=== PATIENT | female | born 2000 | race Caucasian/White ===

== ENCOUNTER 2024-08-18 10:27 | Day surgery (SDC) | payer BC, SELFPAY ==
[2024-08-15 12:25] VITALS: BMI 21.1
[2024-08-18 11:08] VITALS: BP 107/63; PULSE 73; RESP 16; TEMP 36.8; O2SAT 99
[2024-08-18] MEDS: LACTATED RINGERS 1000ML 1,000 ML 50 ML IV (11:17)
--- NOTE | 2024-08-18 11:22 | P.PNANES_ITS ---
[facility] Disclaimer: The information contained in this section may have been updated after the patient was seen, as this information can be updated by other users. Medical History OCD (obsessive compulsive disorder) Anxiety Surgical History History of appendectomy Family History Other Family history non-contributory Social History Smoking Status: Never smoker alcohol intake: never substance use type: marijuana current occupational status: employed Travel in the last 8 weeks: Inside the [place] caffeine: Yes Have you lived/traveled outside [place] in past 30 days?: No Contact w/someone who lives/traveled outside [place] past 30 days?: No Exposure to someone with infectious disease in past 14 days?: No Do you have a fever (greater than 100.4 F or 38 C)?: No Have you tested positive for COVID-19: No Exposed to someone with COVID-19 in past 14 days?: No Do you have a sore throat?: No Do you have a cough?: No Do you have any weakness?: No Are you experiencing any nausea/vomitting?: No Do you have any diarrhea?: No Are you experiencing any unusual bleeding?: No Do you have any muscle aches/pain?: No Do you have any abdominal pain?: No Are you experiencing loss of taste or smell?: No [facility] Anesthesia Checklist Patient Identification Patient Identification: Arm Band and Verbal (Name & ) Structural Data Admitted From: Home Planned Operative Procedure/s: colonoscopy Verified Documents: Surgical Consent NPO Status Verified Time NPO: 00:00 Chart Verification Results Verified: HCG Additional verifications Anesthesia Reactions: No Hx Blood Transfusions: No Blood Transfusion Reaction: No Airway Assessment Mallampati Score:: Class I C-Spine Mobility Assessed: Yes Dentition: Good Dentition Neurological Assessment Level of Consciousness: Awake, Alert and Appropriate Hx Seizures: No Numbness or tingling in extremities: No Anesthesia Plan Anesthesia Plan: Verified ASA Class: I Anesthesia Type: MAC
[2024-08-18 11:33] LABS: Urine Pregnancy, HCG Qual. Negative (Negative)
--- NOTE | 2024-08-18 12:40 | EXP.HP ---
History of Present Illness *Admission Date: 08/18/24 *Reason for visit:: Lower abdominal pain/diarrhea *History of present illness: Ms. Maloney is a 23-year-old female who is here for diagnostic colonoscopy secondary to lower abdominal pain and especially right lower quadrant abdominal pain and bowel irregularity. She also has occasional blood on the tissue. The examination is deemed medically necessary for diagnostic colonoscopy. The patient has been seen, interviewed and examined prior to the procedure by both myself and the anesthesia provider. [facility] Disclaimer: The information contained in this section may have been updated after the patient was seen, as this information can be updated by other users. Medical History OCD (obsessive compulsive disorder) Anxiety Surgical History History of appendectomy Family History Other Family history non-contributory Social History Smoking Status: Never smoker alcohol intake: never substance use type: marijuana current occupational status: employed Travel in the last 8 weeks: Inside the [place] caffeine: Yes Have you lived/traveled outside [place] in past 30 days?: No Contact w/someone who lives/traveled outside [place] past 30 days?: No Exposure to someone with infectious disease in past 14 days?: No Do you have a fever (greater than 100.4 F or 38 C)?: No Have you tested positive for COVID-19: No Exposed to someone with COVID-19 in past 14 days?: No Do you have a sore throat?: No Do you have a cough?: No Do you have any weakness?: No Are you experiencing any nausea/vomitting?: No Do you have any diarrhea?: No Are you experiencing any unusual bleeding?: No Do you have any muscle aches/pain?: No Do you have any abdominal pain?: No Are you experiencing loss of taste or smell?: No Review of Systems Review of Systems Review of systems (narrative): Negative *Cardiovascular Comments: Negative *Gastrointestinal Comments: Negative *Genitourinary Comments: Negative *Musculoskeletal Comments: Negative *Neurologic Comments: Negative Meds Home Medications and Allergies Home Medications ?Medication ?Instructions ?Recorded ?Confirmed ?Type dicyclomine 10 mg capsule 10 mg PO QID PRN abdominal pain 04/22/24 08/18/24 Rx #60 caps hydroxyzine HCl 50 mg tablet 50 mg PO ONCE 08/11/24 08/18/24 History sodium,potassium,mag sulfates 17.5 See Rx Instructions PO .COMPLEX 08/11/24 08/15/24 Rx gram-3.13 gram-1.6 gram oral soln #354 mL (Suprep Bowel Prep Kit) New Prescriptions to Start Prescriptions: Allergies Allergy/AdvReac Type Severity Reaction Status Date / Time latex Allergy Rash Verified 08/18/24 11:05 Exam Data for Last 24 hours Vital signs and Labs for Last 24 Hours: Temp Pulse Resp BP Pulse Ox O2 Del Method 98.3 F 73 16 107/63 L 99 Room Air 08/18/24 11:08 08/18/24 11:08 08/18/24 11:08 08/18/24 11:08 08/18/24 11:08 08/18/24 11:08 Laboratory Results - last 24 hr 08/18/24 10:55: Urine HCG, Qual Negative I & O for Last 24 hours: Intake & Output 08/15/24 08/16/24 08/17/24 08/18/24 23:59 23:59 23:59 23:59 Weight 135 lb *Routine HEENT Exam Head: Present normocephalic Eye: Present EOMI and PERRL ENT: Present mucous membranes moist *Routine Neck Exam Neck: Present supple *Routine Respiratory Exam Respiratory: Present CTA bilaterally *Routine Cardiovascular Exam Cardiovascular: Present RRR *Routine Abdominal Exam Abdominal: Present soft and normoactive bowel sounds; Absent tenderness *Routine Rectal Exam Rectal:: deferred *Routine Genitalia Exam Genitalia:: deferred *Routine Extremities Exam Extremities: Absent cyanosis, clubbing or edema *Routine Skin Exam Skin: Present warm; Absent rash *Routine Neurological Exam Neurological: Present alert and oriented X3 Assessment and Plan *Assessment and plan (1) Lower abdominal pain: Status: Acute Category: Medical Code(s): R10.30 - Lower abdominal pain, unspecified (2) Diarrhea: Status: Acute Category: Medical Code(s): R19.7 - Diarrhea, unspecified (3) Incomplete defecation: Status: Acute Category: Medical Code(s): R15.0 - Incomplete defecation (4) Blood in stool: Status: Acute Category: Medical Code(s): K92.1 - Melena Plan A/P: 1. Lower abdominal pain especially in the right lower quadrant with diarrhea, incomplete defecation and occasional blood with bowel movement is the preprocedural diagnosis. The patient will be anesthetized/sedated using MAC sedation. The patient has been seen and examined. Cardiac and lung assessment prior to the examination is stable. Proceed with planned diagnostic colonoscopy.
[2024-08-18 12:46] VITALS: O2SAT 98
--- NOTE | 2024-08-18 12:52 | P.PCN_ITS ---
[facility] Procedure Note Date: 08/18/24 Time: 13:08 Procedure Note:: Colonoscopy Procedure Report: Colonoscopy with cold biopsies Endoscopist: Justin Nugent II, MD Referring physician: Reese Matos MD, [address], [place] [address] Date of Procedure: August 18, 2024 Equipment: Olympus 190 variable stiffness pediatric colonoscope Sedation: MAC sedation Indication: Ms. Maloney is a 23-year-old female who is here for diagnostic colonoscopy secondary to lower abdominal pain and cramps with bowel irregularity. She does alternate between constipation and diarrhea. She has been to the ED twice. She does get moderate bloating and gassiness. When the abdominal pain is severe she can lose her appetite. She did have normal fecal calprotectin and normal fecal elastase. The patient did have a CAT scan in January 2024 that showed questionable mild thickening of the appendiceal tip with some minimal surrounding inflammatory change. She did have appendectomy but her symptoms have not improved. She also had small hepatic cysts or hepatic hemangiomas identified on CAT scan. The patient reports no weight loss or family history of colitis, Crohn's disease or colon cancer. She does have hemorrhoids and will occasionally have hemorrhoidal issues. She reports no antoine lina or hematochezia. Procedure: Prior to the procedure, a history and physical exam was performed, and patient's medications and allergies were reviewed. The risks, benefits and alternatives of the sedation and procedure were discussed with the patient. All questions were answered and informed consent was obtained. The patient was brought to the procedure room. Patient identification and proposed procedure were verified by the physician and the nurse. The patient was placed in a left lateral decubitus position and the scope was passed under direct vision. Throughout the procedure, the patient's blood pressure, pulse, and oxygen saturations were monitored continuously. The colonoscopy was accomplished without difficulty. The patient tolerated the procedure well. Findings: On digital rectal examination there was normal rectal tone. There were no external hemorrhoids. The colonoscope was introduced through the anal canal to the rectum and advanced to the cecum. The ileocecal valve and appendiceal orifice were identified. The scope was advanced a short distance into the ileum which appeared grossly normal. The scope was then withdrawn into the colon. The cecum, ascending, transverse, descending, sigmoid and rectum were grossly normal. There were no mucosal abnormalities identified. Cold biopsies were taken randomly from the right colon to rule out microscopic colitis. Upon retroflexion within the rectum there were grade 1 internal hemorrhoids. The preparation was excellent throughout with [place] Preparation Score of 9. The cecal time was 12 minutes. Impression: 1. Normal colonoscopy with intubation of the terminal ileum Plan: I will follow-up the biopsies. 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 We will discuss additional dietary measures (i.e. low FODMAP diet) and treatment options.
[2024-08-18 13:10] VITALS: BP 85/37; PULSE 75; RESP 16; TEMP 36.6; O2SAT 100
[2024-08-18 13:20] VITALS: BP 85/43; PULSE 76; RESP 16; O2SAT 100
[2024-08-18 13:30] VITALS: BP 106/51; PULSE 71; RESP 16; O2SAT 100
[2024-08-18 13:40] VITALS: BP 103/61; PULSE 54; RESP 16; O2SAT 100
== END 2024-08-18 14:00 | disposition home or self-care (01) ==
PROVIDERS: Visit Provider Internal Medicine Gastroenterology
PROC: 0DJD8ZZ Inspection of Lower Intestinal Tract, Via Natural or Artificial Opening Endoscopic (ICD-10-PCS; CPT 45378; principal; 2024-08-18 11:30)
DX: R10.30 Lower abdominal pain, unspecified (principal); R19.7 Diarrhea, unspecified; R15.0 Incomplete defecation; K62.5 Hemorrhage of anus and rectum; K64.0 First degree hemorrhoids
CPT/HCPCS: 45380; 81025; J7120